=== PATIENT | female | born 1965 | race Caucasian/White ===

== ENCOUNTER 2021-04-01 23:27 | Inpatient (IN) ==
[2021-04-02] MEDS ORDERED: cefTRIAXone 1,000 MG in Water for inj. (sterile) 10 ML IVP ONE (01:07)
[2021-04-02] MEDS ORDERED: 0.9 % Sodium Chloride 1,000 ML IVC ONE (01:08)
[2021-04-02 01:20] LABS: Basophils % 0.4 %; Eosinophils # 0.1 K/mcL (0.0-0.6); Eosinophils % 0.5 %; Hematocrit 23.4 % (35.3-44.9); Hemoglobin 7.3 g/dL (11.5-15.4); Immature Granulocytes % 0.8 % (0-4); Lymphocytes # 1.1 K/mcL (0.6-4.6); Lymphocytes % 10.1 %; Mean Corpuscular HGB Conc 31.2 g/dL (31.6-35.5); Mean Corpuscular Hemoglobin 28.7 pg (28.0-33.3); Mean Corpuscular Volume 92.1 fL (83.0-100.0); Mean Platelet Volume 10.2 fL (9.4-12.4); Monocytes # 0.3 K/mcL (0.0-1.3); Monocytes % 2.6 %; Neutrophils # 9.4 K/mcL (1.6-8.9); Platelet Count 272 K/mcL (140-400); Red Blood Count 2.54 M/mcL (3.82-4.97); Red Cell Distribution Width 14.6 % (11.5-14.5); Segmented Neutrophils % 85.6 %
[2021-04-02 01:34] LABS: VBG HCO3 20 mEq/L (21-27); VBG PCO2 35 mmHg (41-51); VBG PH 7.36 pH Units (7.32-7.42); VBG PO2 82 mmHg (25-50)
[2021-04-02 01:40] LABS: Anisocytosis 1+ (Not Present); Polychromasia 1+ (Not Present)
[2021-04-02 01:41] LABS: Microcytosis Present (Not Present); Platelet Estimate Normal (Normal)
[2021-04-02 02:00] LABS: Calcium 8.1 mg/dL (8.6-10.3); Magnesium 2.2 mg/dL (1.6-2.6); Potassium 4.4 mEq/L (3.5-5.1)
[2021-04-02 02:24] LABS: Thyroid Stimulating Hormone 1.217 mcIU/mL (0.340-5.600); Troponin I 0.07 ng/mL (< 0.04)
[2021-04-02 04:11] LABS: Bacteria,Urine Few per hpf (None-Few); Bilirubin,Urine Negative (Negative); Blood,Urine Small (Negative); Budding Yeast,Urine Few per hpf (None Seen); Clarity,Urine Turbid (Clear); Color,Urine Light-Yellow (Yellow); Glucose,Urine (UA) 200 mg/dL (Normal); Ketones,Urine Negative (Negative); Leukocyte Esterase,Urine Trace (Negative); Mucus,Urine Few per lpf (None-Few); Nitrite,Urine Negative (Negative); Protein,Urine >=300 mg/dL (Neg-Trace); RBC,Urine 0-3 per hpf (0-3); Specific Gravity,Urine 1.015 (1.010-1.025); Urobilinogen,Urine Normal (Normal); WBC,Urine 15-30 per hpf (0-3)
[2021-04-02] MEDS ORDERED: Furosemide 40 MG/4 ML VIAL IVP ONE (05:44)
[2021-04-02 06:15] LABS: Influenza A PCR Negative (Negative); Influenza B PCR Negative (Negative); Resp. Syncytial Virus PCR Negative (Negative)
[2021-04-02 06:16] LABS: SARS-CoV-2 by PCR (In House) Negative (Negative)
[2021-04-02] MEDS ORDERED: Acetaminophen 325 MG TABLET PO PRN (07:24)
[2021-04-02] MEDS ORDERED: Ondansetron 4 MG/2 ML VIAL IVP PRN (07:24)
[2021-04-02] MEDS ORDERED: D5% in Water 1,000 ML IVC PRN (07:32)
[2021-04-02] MEDS ORDERED: *HR* Dextrose 50 % in Water (Vial) 50 ML VIAL IVP PRN (07:32)
[2021-04-02] MEDS ORDERED: Aspirin 325 MG TABLET PO ONE (07:32)
[2021-04-02] MEDS ORDERED: Dextrose Gel 15 GM/37.5 ML TUBE PO PRN ×2 (07:32)
[2021-04-02 07:57] LABS: Adenovirus Not Detected (Not Detect); Bordetella Pertussis Not Detected (Not Detect); Chlamydophila pneumoniae Not Detected (Not Detect); Coronavirus 229E Not Detected (Not Detect); Coronavirus HKU1 Not Detected (Not Detect); Coronavirus NL63 Not Detected (Not Detect); Coronavirus OC43 Not Detected (Not Detect); Human Metapneumovirus Not Detected (Not Detect); Human Rhinovirus/Enterovirus Not Detected (Not Detect); Influenza A Subtype 2009 H1 Not Detected (Not Detect); Influenza B Not Detected (Not Detect); Mycoplasma pneumoniae Not Detected (Not Detect); Parainfluenza Virus 1 Not Detected (Not Detect); Parainfluenza Virus 2 Not Detected (Not Detect); Parainfluenza Virus 3 Not Detected (Not Detect); Parainfluenza Virus 4 Not Detected (Not Detect); Respiratory Syncytial Virus Not Detected (Not Detect); SARS-CoV-2 Not Detected (Not Detect)
[2021-04-02] MEDS ORDERED: Vancomycin 1,750 MG/517.5 ML IV.SOLN IVPB ONE (08:00)
[2021-04-02] MEDS: Doxycycline 100 MG in 0.9 % Sodium Chloride Mini Bag 100 ML IVPB SCH ×2 (09:24→20:20)
[2021-04-02] MEDS: Cefepime HCl 2,000 MG in Water for inj. (sterile) 20 ML IVP SCH ×3 (09:24→23:14)
[2021-04-02 10:26] LABS: Bilirubin,Indirect 0.5 mg/dL (0.0-1.0); Bilirubin,Total 0.5 mg/dL (0.3-1.0); Globulin 2.9 g/dL (2.4-3.5); Total Protein 5.9 g/dL (6.4-8.9)
[2021-04-02 10:34] LABS: Troponin I 0.12 ng/mL (< 0.04)
[2021-04-02] MEDS: Insulin LISPRO 300 UNITS/3 ML VIAL SUBQ SCH ×3 (11:53→20:21)
[2021-04-02] MEDS: *HR* Heparin 5,000 UNIT/ML VIAL SQ SCH ×2 (16:08→20:22)
[2021-04-02] MEDS: Insulin DETEMIR 100 UNIT/ML X5UNITS SUBQ SCH (18:21)
[2021-04-03 03:01] LABS: Hematocrit 21.7 % (35.3-44.9); Hemoglobin 6.4 g/dL (11.5-15.4); Mean Corpuscular HGB Conc 29.5 g/dL (31.6-35.5); Mean Corpuscular Hemoglobin 27.6 pg (28.0-33.3); Mean Corpuscular Volume 93.5 fL (83.0-100.0); Mean Platelet Volume 10.4 fL (9.4-12.4); Platelet Count 283 K/mcL (140-400); Red Blood Count 2.32 M/mcL (3.82-4.97); White Blood Count 13.1 K/mcL (4.3-11.1)
[2021-04-03 03:24] LABS: Calcium 7.8 mg/dL (8.6-10.3); Potassium 4.5 mEq/L (3.5-5.1)
[2021-04-03] MEDS: *HR* Heparin 5,000 UNIT/ML VIAL SQ SCH ×2 (05:12→15:09)
[2021-04-03] MEDS ORDERED: 0.9 % Sodium Chloride 250 ML IVC SCH (05:30)
[2021-04-03] MEDS: Insulin LISPRO 300 UNITS/3 ML VIAL SUBQ SCH ×4 (08:06→21:00)
[2021-04-03] MEDS: Doxycycline 100 MG in 0.9 % Sodium Chloride Mini Bag 100 ML IVPB SCH ×2 (08:22→21:00)
[2021-04-03] MEDS: Aspirin 81 MG TAB.CHEW PO SCH (08:22)
[2021-04-03] MEDS: Cefepime HCl 2,000 MG in Water for inj. (sterile) 20 ML IVP SCH (08:23)
[2021-04-03] MEDS: Insulin DETEMIR 100 UNIT/ML X5UNITS SUBQ SCH ×2 (08:56→21:00)
[2021-04-03] MEDS ORDERED: hydrALAZINE 10 MG TABLET PO ONE (12:51)
[2021-04-03] MEDS: carvediloL 25 MG TABLET PO SCH (18:47)
[2021-04-03] MEDS: cloNIDine HCL 0.1 MG TABLET PO SCH (18:47)
[2021-04-03] MEDS ORDERED: cloNIDine HCL 0.1 MG TABLET PO SCH (21:00)
[2021-04-03] MEDS ORDERED: carvediloL 25 MG TABLET PO SCH (21:00)
[2021-04-03 21:39] LABS: Hematocrit 22.4 % (35.3-44.9)
[2021-04-03 21:40] LABS: Hemoglobin 6.9 g/dL (11.5-15.4)
[2021-04-03 21:53] LABS: Complement C3 148 mg/dL (87-200)
[2021-04-04 02:38] LABS: Hematocrit 23.4 % (35.3-44.9); Hemoglobin 7.1 g/dL (11.5-15.4); Mean Corpuscular HGB Conc 30.3 g/dL (31.6-35.5); Mean Corpuscular Hemoglobin 28.5 pg (28.0-33.3); Mean Platelet Volume 10.3 fL (9.4-12.4); Platelet Count 327 K/mcL (140-400); Red Blood Count 2.49 M/mcL (3.82-4.97); Red Cell Distribution Width 15.1 % (11.5-14.5); White Blood Count 12.4 K/mcL (4.3-11.1)
[2021-04-04 03:00] LABS: Potassium 4.8 mEq/L (3.5-5.1)
[2021-04-04] MEDS: carvediloL 25 MG TABLET PO SCH ×2 (07:59→16:28)
[2021-04-04] MEDS: cloNIDine HCL 0.1 MG TABLET PO SCH ×2 (07:59→20:12)
[2021-04-04] MEDS: Aspirin 81 MG TAB.CHEW PO SCH (07:59)
[2021-04-04] MEDS: Doxycycline 100 MG in 0.9 % Sodium Chloride Mini Bag 100 ML IVPB SCH ×2 (08:01→20:13)
[2021-04-04] MEDS: Cefepime HCl 2,000 MG in Water for inj. (sterile) 20 ML IVP SCH (08:01)
[2021-04-04] MEDS: Insulin DETEMIR 100 UNIT/ML X5UNITS SUBQ SCH ×2 (08:32→20:13)
[2021-04-04] MEDS: Insulin LISPRO 300 UNITS/3 ML VIAL SUBQ SCH ×4 (08:33→20:14)
[2021-04-04] MEDS ORDERED: Ringers Solution, Lactated 1,000 ML IVC SCH (09:00)
[2021-04-04] MEDS ORDERED: Lidocaine -MPF 2% 5 ML VIAL ONE (12:59)
[2021-04-04] MEDS ORDERED: *HR* Propofol 200 MG/20 ML VIAL IVP ONE ×2 (13:01→13:05)
[2021-04-04 15:08] LABS: Estimated Average Glucose 209 mg/dl; Hemoglobin A1C 8.9 %
[2021-04-04 15:38] LABS: Sodium, Urine 20.3 mEq/L
[2021-04-04 15:40] LABS: Bacteria,Urine Few per hpf (None-Few); Bilirubin,Urine Negative (Negative); Blood,Urine Negative (Negative); Clarity,Urine Turbid (Clear); Color,Urine Yellow (Yellow); Glucose,Urine (UA) Normal (Normal); Hyaline Casts,Urine Moderate per lpf (None Seen); Ketones,Urine Trace mg/dL (Negative); Leukocyte Esterase,Urine Small (Negative); Mucus,Urine Few per lpf (None-Few); Nitrite,Urine Negative (Negative); PH,Urine 5.5 pH Units (5.0-8.0); Protein,Urine >=300 mg/dL (Neg-Trace); RBC,Urine 0-3 per hpf (0-3); Renal Epithelial Cells,Urine Few per hpf (None-Few); Specific Gravity,Urine 1.018 (1.010-1.025); Squamous Epithelial Cell,Urine Few per hpf (None-Few); Transitional Epi Cells,Urine Few per hpf (None-Few); Urobilinogen,Urine Normal (Normal); WBC,Urine 15-30 per hpf (0-3)
[2021-04-04] MEDS ORDERED: 0.9 % Sodium Chloride 1,000 ML IVC SCH (17:15)
[2021-04-04] MEDS ORDERED: Menthol 1 EACH LOZENGE PO PRN (23:52)
[2021-04-05 03:22] LABS: Hematocrit 24.7 % (35.3-44.9); Hemoglobin 7.7 g/dL (11.5-15.4); Mean Corpuscular HGB Conc 31.2 g/dL (31.6-35.5); Mean Corpuscular Hemoglobin 28.6 pg (28.0-33.3); Mean Corpuscular Volume 91.8 fL (83.0-100.0); Platelet Count 374 K/mcL (140-400); Red Blood Count 2.69 M/mcL (3.82-4.97); Red Cell Distribution Width 15.2 % (11.5-14.5); White Blood Count 12.7 K/mcL (4.3-11.1)
[2021-04-05 03:42] LABS: Calcium 8.1 mg/dL (8.6-10.3); Potassium 4.4 mEq/L (3.5-5.1)
[2021-04-05 03:44] LABS: % Iron Saturation 8 % (15-50); Iron 19 mcg/dL (50-170); Transferrin 161 mg/dL (203-362)
[2021-04-05 04:00] LABS: Ferritin 145 ng/mL (10-120)
[2021-04-05] MEDS: Insulin LISPRO 300 UNITS/3 ML VIAL SUBQ SCH ×4 (09:24→21:26)
[2021-04-05] MEDS: Aspirin 81 MG TAB.CHEW PO SCH (09:25)
[2021-04-05] MEDS: Insulin DETEMIR 100 UNIT/ML X5UNITS SUBQ SCH ×2 (09:25→23:08)
[2021-04-05] MEDS: cloNIDine HCL 0.1 MG TABLET PO SCH ×2 (09:25→21:16)
[2021-04-05] MEDS: carvediloL 25 MG TABLET PO SCH ×2 (09:25→17:57)
[2021-04-05] MEDS: Cefepime HCl 2,000 MG in Water for inj. (sterile) 20 ML IVP SCH (09:26)
[2021-04-05] MEDS: Doxycycline 100 MG in 0.9 % Sodium Chloride Mini Bag 100 ML IVPB SCH ×2 (09:26→21:17)
[2021-04-06 01:40] LABS: Hematocrit 23.1 % (35.3-44.9); Hemoglobin 7.1 g/dL (11.5-15.4); Mean Corpuscular HGB Conc 30.7 g/dL (31.6-35.5); Mean Corpuscular Hemoglobin 28.4 pg (28.0-33.3); Mean Corpuscular Volume 92.4 fL (83.0-100.0); Mean Platelet Volume 10.1 fL (9.4-12.4); Platelet Count 416 K/mcL (140-400); Red Cell Distribution Width 14.9 % (11.5-14.5); White Blood Count 13.7 K/mcL (4.3-11.1)
[2021-04-06 01:53] LABS: Calcium 7.9 mg/dL (8.6-10.3); Potassium 4.9 mEq/L (3.5-5.1)
[2021-04-06 06:27] LABS: Serine Protease-3 Antibody 0 AU/mL (0-19)
[2021-04-06] MEDS: carvediloL 25 MG TABLET PO SCH (09:37)
[2021-04-06] MEDS: Insulin LISPRO 300 UNITS/3 ML VIAL SUBQ SCH ×2 (09:37→13:20)
[2021-04-06] MEDS: cloNIDine HCL 0.1 MG TABLET PO SCH (09:37)
[2021-04-06] MEDS: Aspirin 81 MG TAB.CHEW PO SCH (09:37)
[2021-04-06] MEDS: Doxycycline 100 MG in 0.9 % Sodium Chloride Mini Bag 100 ML IVPB SCH (09:38)
[2021-04-06] MEDS: Insulin DETEMIR 100 UNIT/ML X5UNITS SUBQ SCH (09:39)
[2021-04-06 10:17] VITALS: BP 171/76
[2021-04-07 11:08] LABS: Anaplasma phagocytophilum IgG <1:80 (<1:80); Anaplasma phagocytophilum IgM < 1:16 (< 1:16)
== END 2021-04-06 14:46 | disposition home or self-care (01) | DRG 871 ==
LOC: 2NNU 23:27 → EMEROOARM 23:27 → 2NNU 04-02 08:25 → SUATTDRO 04-02 13:24 → 3ANU 04-05 19:03
PROVIDERS: ADMIT Internal Medicine; ATTEND Internal Medicine

== ENCOUNTER 2021-11-22 19:38 | Observation (INO) ==
[2021-11-22] MEDS ORDERED: Isovue-370 500 ML BOTTLE IVP ONE (19:55)
[2021-11-22 20:17] LABS: Basophils # 0.1 K/mcL (0.0-0.2); Basophils % 1.1 %; Eosinophils # 0.3 K/mcL (0.0-0.6); Eosinophils % 4.2 %; Hematocrit 34.3 % (35.3-44.9); Immature Granulocytes % 0.9 % (0-4); Lymphocytes # 1.7 K/mcL (0.6-4.6); Lymphocytes % 20.7 %; Mean Corpuscular HGB Conc 32.1 g/dL (31.6-35.5); Mean Corpuscular Hemoglobin 28.9 pg (28.0-33.3); Mean Corpuscular Volume 90.3 fL (83.0-100.0); Mean Platelet Volume 9.3 fL (9.4-12.4); Monocytes # 0.6 K/mcL (0.0-1.3); Neutrophils # 5.3 K/mcL (1.6-8.9); Platelet Count 360 K/mcL (140-400); Red Cell Distribution Width 13.6 % (11.5-14.5); Segmented Neutrophils % 66.1 %; White Blood Count 8.1 K/mcL (4.3-11.1)
[2021-11-22 20:23] LABS: INR 0.9; Prothrombin Time 10.5 Seconds (9.4-12.1)
[2021-11-22 20:37] LABS: Alanine Aminotransferase 11 Units/L (7-52); Albumin 4.2 g/dL (3.5-5.7); Albumin/Globulin Ratio 1.4 (1.1-2.2); Alkaline Phosphatase 70 Units/L (34-104); Aspartate Amino Transferase 12 Units/L (13-39); BUN/Creatinine Ratio 34 (6-26); Bilirubin,Indirect 0.5 mg/dL (0.0-1.0); Bilirubin,Total 0.5 mg/dL (0.3-1.0); Blood Urea Nitrogen 75 mg/dL (6-20); Calcium 9.4 mg/dL (8.6-10.3); Carbon Dioxide 27 mEq/L (23-29); Chloride 98 mEq/L (98-107); Globulin 2.9 g/dL (2.4-3.5); Glucose 197 mg/dL (70-105); Osmolality,Calculated 306 (280-300); Potassium 4.8 mEq/L (3.5-5.1); Sodium 134 mEq/L (136-145); Total Protein 7.1 g/dL (6.4-8.9); Troponin I < 0.03 ng/mL (< 0.04); eGFR For African Americans 28 (> 60); eGFR For Non-African Americans 23 (> 60)
[2021-11-22 20:56] LABS: Bacteria,Urine Few per hpf (None-Few); Bilirubin,Urine Negative (Negative); Blood,Urine Negative (Negative); Clarity,Urine Turbid (Clear); Color,Urine Light-Yellow (Yellow); Glucose,Urine (UA) Normal (Normal); Ketones,Urine Negative (Negative); Leukocyte Esterase,Urine Large (Negative); Nitrite,Urine Negative (Negative); PH,Urine 6.5 pH Units (5.0-8.0); Protein,Urine 100 mg/dL (Neg-Trace); Specific Gravity,Urine 1.012 (1.010-1.025); Squamous Epithelial Cell,Urine Few per hpf (None-Few); Transitional Epi Cells,Urine Few per hpf (None-Few); Urobilinogen,Urine Normal (Normal); WBC,Urine TNTC per hpf (0-3)
[2021-11-22 21:29] LABS: Influenza A PCR Negative (Negative); Influenza B PCR Negative (Negative); Resp. Syncytial Virus PCR Negative (Negative)
[2021-11-22 21:30] LABS: SARS-CoV-2 by PCR (In House) Negative (Negative)
[2021-11-22] MEDS ORDERED: cefTRIAXone 1,000 MG in 0.9 % Sodium Chloride Mini Bag 100 ML IVPB ONE (21:56)
[2021-11-22] MEDS ORDERED: cefTRIAXone 1,000 MG in 0.9 % Sodium Chloride 10 ML IVPB ONE (22:00)
[2021-11-22] MEDS ORDERED: Perflutren Lipid Microsphere 1.3 ML in 0.9 % Sodium Chloride 8.7 ML IVP PRN (22:02)
[2021-11-22] MEDS ORDERED: Aspirin Enteric Coated 325 MG Tablet PO ONE (22:03)
[2021-11-22] MEDS ORDERED: Ondansetron 4 MG/2 ML VIAL IVP PRN (22:24)
[2021-11-22] MEDS ORDERED: Acetaminophen 325 MG TABLET PO PRN (22:24)
[2021-11-22] MEDS ORDERED: Naloxone 0.4 MG/ML INJ IVP PRN (22:24)
[2021-11-22 22:30] LABS: Ethanol < 10 mg/dL (Less than 10)
[2021-11-23] MEDS: cloNIDine HCL 0.1 MG TABLET PO SCH ×2 (01:26→08:54)
[2021-11-23] MEDS: hydrALAZINE 25 MG TABLET PO SCH ×3 (01:26→15:03)
[2021-11-23] MEDS: carvediloL 25 MG TABLET PO SCH ×3 (01:27→15:03)
[2021-11-23 05:41] LABS: Basophils # 0.1 K/mcL (0.0-0.2); Eosinophils # 0.3 K/mcL (0.0-0.6); Eosinophils % 4.4 %; Hematocrit 30.2 % (35.3-44.9); Hemoglobin 9.8 g/dL (11.5-15.4); Immature Granulocytes % 0.5 % (0-4); Lymphocytes % 25.4 %; Mean Corpuscular HGB Conc 32.5 g/dL (31.6-35.5); Mean Corpuscular Hemoglobin 29.1 pg (28.0-33.3); Mean Corpuscular Volume 89.6 fL (83.0-100.0); Mean Platelet Volume 9.4 fL (9.4-12.4); Monocytes # 0.7 K/mcL (0.0-1.3); Monocytes % 8.5 %; Neutrophils # 4.7 K/mcL (1.6-8.9); Platelet Count 320 K/mcL (140-400); Red Blood Count 3.37 M/mcL (3.82-4.97); Red Cell Distribution Width 13.6 % (11.5-14.5); Segmented Neutrophils % 60.2 %; White Blood Count 7.8 K/mcL (4.3-11.1)
[2021-11-23] MEDS: *HR* Heparin 5,000 UNIT/ML VIAL SQ SCH ×2 (05:47→11:57)
[2021-11-23 05:56] LABS: Prothrombin Time 11.6 Seconds (9.4-12.1)
[2021-11-23 06:07] LABS: Alanine Aminotransferase 8 Units/L (7-52); Albumin 3.4 g/dL (3.5-5.7); Albumin/Globulin Ratio 1.5 (1.1-2.2); Alkaline Phosphatase 54 Units/L (34-104); Aspartate Amino Transferase 10 Units/L (13-39); BUN/Creatinine Ratio 34 (6-26); Bilirubin,Total 0.3 mg/dL (0.3-1.0); Blood Urea Nitrogen 72 mg/dL (6-20); Calcium 8.8 mg/dL (8.6-10.3); Carbon Dioxide 24 mEq/L (23-29); Chloride 103 mEq/L (98-107); Cholesterol 301 mg/dL (< 200); Globulin 2.3 g/dL (2.4-3.5); Glucose 135 mg/dL (70-105); HDL Cholesterol 25 mg/dL (40-59); Osmolality,Calculated 307 (280-300); Potassium 4.3 mEq/L (3.5-5.1); Sodium 137 mEq/L (136-145); Total Protein 5.7 g/dL (6.4-8.9); Triglycerides 713 mg/dL (< 150); Troponin I < 0.03 ng/mL (< 0.04); eGFR For African Americans 30 (> 60); eGFR For Non-African Americans 25 (> 60)
[2021-11-23 06:31] LABS: Folate > 22.3 ng/mL (3.0-16.0); Vitamin B12 866 pg/mL (250-1100)
[2021-11-23 07:00] LABS: LDL Cholesterol,Direct 80 mg/dL (75-193)
[2021-11-23 07:05] LABS: Estimated Average Glucose 192 mg/dl; Hemoglobin A1C 8.3 %
[2021-11-23] MEDS ORDERED: Cholecalciferol (D-3) 1,000 UNIT (25MCG) TABLET PO SCH (09:00)
[2021-11-23] MEDS ORDERED: Insulin DETEMIR 100 UNIT/ML X5UNITS SUBQ SCH (09:00)
[2021-11-23] MEDS ORDERED: cefTRIAXone 1,000 MG in 0.9 % Sodium Chloride Mini Bag 100 ML IVPB SCH (09:00)
[2021-11-23] MEDS ORDERED: DilTIAZem CD (24hr) 180 MG CAP.ER.24H PO SCH (09:00)
[2021-11-23] MEDS ORDERED: Aspirin Enteric Coated 81 MG Tablet PO SCH (09:00)
[2021-11-23] MEDS ORDERED: Bumetanide 1 MG TABLET PO SCH (09:00)
[2021-11-23] MEDS ORDERED: *HR* Glimepiride 4 MG TABLET PO SCH (09:00)
[2021-11-23 11:04] LABS: Amphetamine Screen,Urine Negative ng/mL (Cutoff=1000); Barbiturate Screen,Urine Negative ng/mL (Cutoff=200); Benzodiazepines Screen,Urine Negative ng/mL (Cutoff=200); Cannabinoid Screen,Urine Negative ng/mL (Cutoff = 50); Cocaine Screen,Urine Negative ng/mL (Cutoff= 300); Opiate Screen,Urine Negative ng/mL (Cutoff=300); Phencyclidine Screen,Urine Negative ng/mL (Cutoff=25)
[2021-11-23 11:19] VITALS: O2SAT 94
[2021-11-23] MEDS ORDERED: (Dulaglutide [Trulicity] 1.5 MG/0.5 ML Pen.Injctr) SQ SCH (12:00)
[2021-11-23 15:03] VITALS: BP 136/72; PULSE 65; TEMP 98.1
== END 2021-11-23 17:42 | disposition home or self-care (01) ==
LOC: 3BNU 19:38 → EMEROOARM 19:38 → 3BNU 22:43
PROVIDERS: ADMIT Internal Medicine; ATTEND Internal Medicine